=== PATIENT | female | born 1945 | race Caucasian/White ===

== ENCOUNTER 2018-10-31 11:07 | Emergency (ER) | payer MEDICARE, OTHER ==
[~2018-10-31] VITALS: Ht 162.6 cm; Wt 74.8 kg
--- NOTE | 2018-10-31 11:25 | ED Fall/Injury ---
General Chief Complaint: Upper Extremity Stated Complaint: FALL - RT ARM PAIN Source: patient, family Exam Limitations: no limitations History of Present Illness Date Seen by Provider: Oct 31, 2018 Time Seen by Provider: 11:13 Initial Comments Patient presents to ER by private conveyance with her significant other and chief complaint that just prior to arrival she had a fall while out sweeping in her yard. She says the ground a slick with water and she slipped landing on her right side and right elbow. She's having pain and swelling of her right wrist. She has not taken anything for the pain but she does routinely take Aleve when she needs something for pain. She denies being on a blood thinner or antiplatelet. She does have a pacemaker. She denies striking her head or loss of consciousness, headache nausea or pain in her neck. She says she is very distracted by the pain in her wrist but feels a little bit of pain in her right hip where she landed as well. Allergies and Home Medications Allergies Coded Allergies: No Known Drug Allergies (Unverified , 10/31/18) Home Medications Hydrocodone Bit/Acetaminophen 1 Tab Tab, 1 EACH PO Q4-6HR PRN for PAIN-MODERATE Prescribed by: PACO FRANCISCO on 10/31/18 1239 Patient Home Medication List Home Medication List Reviewed: Yes Review of Systems Review of Systems Constitutional: No chills, No diaphoresis Eyes: Denies Blindness, Denies Blurred Vision Ears, Nose, Mouth, Throat: denies ear pain, denies ear discharge Respiratory: No cough, No short of breath Cardiovascular: No chest pain, No edema Gastrointestinal: No abdominal pain, No constipation, No diarrhea Genitourinary: No discharge, No dysuria Past Lspkdgs-Azjqbc-Gemzvn Hx Patient Social History Alcohol Use: Denies Use Recreational Drug Use: No Smoking Status: Never a Smoker Physical Exam Vital Signs Vital Signs - First Documented 10/31/18 11:12 Temp 97.4 Pulse 63 Resp 16 B/P (MAP) 155/73 (100) Pulse Ox 100 O2 Delivery Room Air Capillary Refill : Height, Weight, BMI Height: '" Weight: lbs. oz. kg; BMI Method: General Appearance: WD/WN, mild distress HEENT: PERRL/EOMI, normal ENT inspection, TMs normal, pharynx normal Neck: non-tender, full range of motion, supple, normal inspection Cardiovascular: normal peripheral pulses, regular rate, rhythm, no edema Respiratory: chest non-tender, lungs clear, normal breath sounds, no respiratory distress, no accessory muscle use Gastrointestinal: normal bowel sounds, non tender, soft Pelvic: normal external exam, other (mild tenderness over the right greater trochanter on palpation but no deformity palpated.) Back: normal inspection, no vertebral tenderness Extremities: normal range of motion (right shoulder and elbow), normal inspection (and right shoulder and elbow), swelling (right wrist), other (pain over the right wrist as well as the elbow to direct palpation. Good range of motion but pain over the lateral portion of the glenohumeral joint on direct palpation.) Neurologic/Psychiatric: no motor/sensory deficits, alert, normal mood/affect, oriented x 3 Skin: normal color, warm/dry, ecchymosis (right wrist) Progress/Results/Core Measures Results/Orders My Orders Orders - PACO FRANCISCO Ct Head/Cervical Spine Wo (10/31/18 11:18) Elbow 3 View Right (10/31/18 11:18) Hip 2-3 View Right (10/31/18 11:18) Shoulder 3 View Right (10/31/18 11:18) Wrist 3 View Right (10/31/18 11:18) Ketorolac Injection (Toradol Injection) (10/31/18 11:30) Medications Given in ED Current Medications Medications Dose Ordered Sig/Ralph Route Start Time Stop Time Status Last Admin Dose Admin Ketorolac Tromethamine 60 mg ONCE ONCE IM 10/31/18 11:30 10/31/18 11:31 DC 10/31/18 11:27 60 MG Vital Signs/I&O 10/31/18 11:12 Temp 97.4 Pulse 63 Resp 16 B/P (MAP) 155/73 (100) Pulse Ox 100 O2 Delivery Room Air Progress Progress Note #1: Time: 11:23 Progress Note Discussed the option of observation versus CT scan of the head and neck taking about subdural or occult fracture and the patient and family elected to do imaging. We'll do x-ray right shoulder, elbow and wrist. Toradol for pain. Progress Note #2: Time: 12:35 Progress Note Sling, sugar tong immobilization of the wrist and elbow and conservative management. Diagnostic Imaging Diagonstic Imaging: CT (noncontrast) Plain Films/CT/US/NM/MRI: c-spine, head Comments No acute osseous abnormalities of the calvarium or C-spine. No acute intracranial hemorrhage, mass effect, midline shift or tumor. NAME: FRANCISCO POLANCO MED REC#: [id number] PT STATUS: REG ER : 1945 PHYSICIAN: PACO FRANCISCO MD ADMIT DATE: 10/31/18/ER FS Draft Date of Exam:10/31/18 CT HEAD/CERVICAL SPINE WO PROCEDURE: CT head and CT cervical spine without contrast. TECHNIQUE: Multiple contiguous axial images were obtained through the brain and cervical spine without the use of intravenous contrast. Sagittal and coronal reformations through the cervical spine were then performed. Auto Exposure Controls were utilized during the CT exam to meet ALARA standards for radiation dose reduction. INDICATION: Fell on concrete, landed on right side of body. EXAMINATION: CT brain and cervical spine 10/31/2018 FINDINGS: Brain: There is no hemorrhage or infarct. No mass, mass effect or midline shift. No hydrocephalus. The calvarium demonstrates no acute fractures, no acute process is seen within the visualized sinuses or mastoid air cells. IMPRESSION: 1. No acute intracranial process. CT cervical spine: Normal height and alignment of the vertebral bodies is seen. There are no acute fractures appreciated. No subluxations. Prevertebral soft tissues unremarkable. Chronic findings seen in the visualized lung apices. IMPRESSION: 1. No acute process within the cervical spine. Degenerative findings present. Dictated on workstation # [id number] Dict: 10/31/18 1223 Trans: 10/31/18 1242 [facility] [id number] Interpreted by: ALEX GOMEZ MD Electronically signed by: Reviewed: Reviewed by Md Diagonstic Imaging: Xray Plain Films/CT/US/NM/MRI: elbow (right), other (right shoulder) Comments No acute osseous abnormalities. [facility] [place] [place] NAME: FRANCISCO POLANCO MED REC#: [id number] PT STATUS: REG ER : 1945 PHYSICIAN: PACO FRANCISCO MD ADMIT DATE: 10/31/18/ER FS Draft Date of Exam:10/31/18 ELBOW 3 VIEW RIGHT INDICATION: Injury, fell on wet concrete. Pain. EXAMINATION: Right elbow 10/31/2018. FINDINGS: There is no evidence for an acute fracture or dislocation. The joint spaces are well maintained. There is no significant soft tissue swelling. IMPRESSION: No acute process. Dictated on workstation # [id number] Dict: 10/31/18 1231 Trans: 10/31/18 1237 CV Interpreted by: ALEX GOMEZ MD Electronically signed by: NAME: FRANCISCO POLANCO MED REC#: [id number] PT STATUS: REG ER : 1945 PHYSICIAN: PACO FRANCISCO MD ADMIT DATE: 10/31/18/ER FS Draft Date of Exam:10/31/18 SHOULDER 3 VIEW RIGHT Indication: Fall, pain. Findings: There are arthritic changes to the acromioclavicular joint and mild degenerative change to the glenohumeral joint. No fracture or dislocation. The clavicle intact. No joint separation. The visualized adjacent ribs and pleura intact. Impression: No acute-appearing abnormality. Dictated on workstation # [id number] Dict: 10/31/18 1222 Trans: 10/31/18 122 CV Interpreted by: PEYTON FOSS Electronically signed by: Reviewed: Reviewed by Md Diagonstic Imaging: Xray Plain Films/CT/US/NM/MRI: hand (and right wrist) Comments Distal radial head fracture not involving the articular surface. Closed. Nondisplaced or angulated. [facility] [place] [place] NAME: FRANCISCO POLANCO MED REC#: [id number] PT STATUS: REG ER : 1945 PHYSICIAN: PACO FRANCISCO MD ADMIT DATE: 10/31/18/ER FS Draft Date of Exam:10/31/18 WRIST 3 VIEW RIGHT Indication: Fall on concrete. Pain. Examination: Right wrist 10/31/2018 Findings: 4 views of the wrist There is a transverse fracture through the distal radius with dorsal angulation of the fracture site. The remaining visualized osseous structures demonstrate diffuse degenerative findings about the wrist, especially at the base of the first metacarpal. Impression: 1. Somewhat comminuted and dorsally angulated fracture of the distal radius. Remaining findings appear chronic. Dictated on workstation # [id number] Dict: 10/31/18 1231 Trans: 10/31/18 1239 CV [id number] Interpreted by: ALEX GOMEZ MD Electronically signed by: Reviewed: Reviewed by Me Diagonstic Imaging: Xray Plain Films/CT/US/NM/MRI: hip (r) Comments [facility] [place], [place] NAME: FRANCISCO POLANCO MED REC#: [id number] PT STATUS: REG ER : 1945 PHYSICIAN: PACO FRANCISCO MD ADMIT DATE: 10/31/18/ER FS Draft Date of Exam:10/31/18 HIP 2-3 VIEW RIGHT Indication: Fall, pain. Findings: No fracture, dislocation or acute articular incongruity. No avulsion. Impression: No acute-appearing abnormality. Dictated on workstation # [id number] Dict: 10/31/18 1223 Trans: 10/31/18 1228 CV [id number] Interpreted by: PEYTON FOSS Electronically signed by: Reviewed: Reviewed by Me Departure Impression Primary Impression: Fracture of radial head, right, closed Qualified Codes: S52.124A - Nondisplaced fracture of head of right radius, initial encounter for closed fracture Additional Impression: Fall from standing Qualified Codes: W19.XXXA - Unspecified fall, initial encounter Disposition: 01 HOME, SELF-CARE Condition: Stable Departure-Patient Inst. Decision time for Depature: 12:35 Referrals: LESLIE COTTO MD SELFMYNOR MD (PCP/Family) Primary Care Physician Patient Instructions: How to Use a Shoulder Sling, Wrist Fracture (DC) Add. Discharge Instructions: For the first 3 days apply ice every 4 hours while awake to the wrist to reduce swelling and pain. Tylenol 1000 mg in addition to ibuprofen 800 mg every 8 hours each can be useful as needed for pain. If you have numbness, tingling or increased swelling and pain in your wrist then you should apply ice, loosen the Karthik bandage wrap and elevate the wrist above the level of your heart. If you have a tremendous amount of pain not treated by these suggestions then you can use the hydrocodone one tablet every 6 hours as needed however will cause constipation and drowsiness and should be accompanied with a laxative such as MiraLAX daily. Review the handout for further tips. Wear the sling at all times except to bathe. Keep the splint on and out of water until removed by your physician. Call Dr. Cotto, orthopedic surgery or the orthopedic surgeon of your choice for a follow-up appointment usually within one week. If you have questions or need help managing symptoms you may also follow-up with your primary care doctor. All discharge instructions reviewed with patient and/or family. Voiced understanding. Scripts Hydrocodone Bit/Acetaminophen (Hydrocodone/Acetaminophen 5/325mg Tablet) 1 Tab Tab 1 EACH PO Q4-6HR PRN for PAIN-MODERATE MDD 10 for 3 Days, #10 TAB Prov: PACO FRANCISCO 10/31/18 Copy Copies To 1: LESLIE COTTO MD; MERLINE CONWAY MD, TITUS J Oct 31, 2018 11:25
[2018-10-31] MEDS ORDERED: KETOROLAC 60 MG/2 ML VIAL IM ONE (11:30)
[2018-10-31] MEDS ORDERED: CHLO25TA22 (12:17)
[2018-10-31] MEDS ORDERED: PARO20TA5 (12:17)
[2018-10-31] MEDS ORDERED: PRAV20TA3 (12:17)
--- NOTE | 2018-10-31 12:17 | NUR ---
Returned from xray/CT
--- NOTE | 2018-10-31 12:28 | Diagnostic Imaging Report ---
Indication: Fall, pain. Findings: There are arthritic changes to the acromioclavicular joint and mild degenerative change to the glenohumeral joint. No fracture or dislocation. The clavicle intact. No joint separation. The visualized adjacent ribs and pleura intact. Impression: No acute-appearing abnormality. Dictated by: Dictated on workstation # [id number]
--- NOTE | 2018-10-31 12:29 | Diagnostic Imaging Report ---
Indication: Fall, pain. Findings: No fracture, dislocation or acute articular incongruity. No avulsion. Impression: No acute-appearing abnormality. Dictated by: Dictated on workstation # [id number]
--- NOTE | 2018-10-31 12:30 | NUR ---
Long arm Sugar Tong splint placed to right arm. DNV's intact. Dr Bray viewed post placement.
--- NOTE | 2018-10-31 12:38 | Diagnostic Imaging Report ---
INDICATION: Injury, fell on wet concrete. Pain. EXAMINATION: Right elbow 10/31/2018. FINDINGS: There is no evidence for an acute fracture or dislocation. The joint spaces are well maintained. There is no significant soft tissue swelling. IMPRESSION: No acute process. Dictated by: Dictated on workstation # [id number]
[2018-10-31] MEDS ORDERED: ACHD5005 PO (12:39)
--- NOTE | 2018-10-31 12:39 | Diagnostic Imaging Report ---
Indication: Fall on concrete. Pain. Examination: Right wrist 10/31/2018 Findings: 4 views of the wrist There is a transverse fracture through the distal radius with dorsal angulation of the fracture site. The remaining visualized osseous structures demonstrate diffuse degenerative findings about the wrist, especially at the base of the first metacarpal. Impression: 1. Somewhat comminuted and dorsally angulated fracture of the distal radius. Remaining findings appear chronic. Dictated by: Dictated on workstation # [id number]
--- NOTE | 2018-10-31 12:43 | Diagnostic Imaging Report ---
PROCEDURE: CT head and CT cervical spine without contrast. TECHNIQUE: Multiple contiguous axial images were obtained through the brain and cervical spine without the use of intravenous contrast. Sagittal and coronal reformations through the cervical spine were then performed. Auto Exposure Controls were utilized during the CT exam to meet ALARA standards for radiation dose reduction. INDICATION: Fell on concrete, landed on right side of body. EXAMINATION: CT brain and cervical spine 10/31/2018 FINDINGS: Brain: There is no hemorrhage or infarct. No mass, mass effect or midline shift. No hydrocephalus. The calvarium demonstrates no acute fractures, no acute process is seen within the visualized sinuses or mastoid air cells. IMPRESSION: 1. No acute intracranial process. CT cervical spine: Normal height and alignment of the vertebral bodies is seen. There are no acute fractures appreciated. No subluxations. Prevertebral soft tissues unremarkable. Chronic findings seen in the visualized lung apices. IMPRESSION: 1. No acute process within the cervical spine. Degenerative findings present. Dictated by: Dictated on workstation # [id number]
[2018-10-31 12:53] VITALS: BP 149/84
--- NOTE | 2018-10-31 12:53 | NUR ---
Pt discharged to home after extensive discharge review with numerous questions answered. Pt and spouse verbalize understanding of home instructions and will call to [facility] tomorrow for Dr Cotto (wagon driller) to arrange a follow up appt. Discussed signs and sx of vascular compromise r/t swelling: numb, tingling, unable to noe color of fingernails, and obvious discoloration of skin deepened color bluish/purple or white (can not noe a cap refill). Return to ED as needed with concerns.
== END 2018-10-31 12:53 | disposition home or self-care (01) ==
LOC: ER FS 11:09
DX: S52.124A Nondisplaced fracture of head of right radius, initial encounter for closed fracture (principal); Z95.0 Presence of cardiac pacemaker; W01.0XXA Fall on same level from slipping, tripping and stumbling without subsequent striking against object, initial encounter; Y92.096 Garden or yard of other non-institutional residence as the place of occurrence of the external cause
CPT/HCPCS: 29105; 70450; 72125; 73030; 73080; 73110; 73502

== ENCOUNTER 2023-01-21 10:32 | Emergency (ER) | payer MEDICARE, OTHER ==
[~2023-01-21] VITALS: Ht 157 cm; Wt 77.0 kg
[~2023-01-21 10:32] MED LIST: ACHD5005 PO; CHLO25TA22; PARO20TA5; PRAV20TA3
[2023-01-21 10:51] LABS: BASOPHILS % (AUTO) 1 % (0-10); EOSINOPHILS # (AUTO) 0.2 10^3/uL (0.0-0.3); EOSINOPHILS % (AUTO) 3 % (0-10); HEMATOCRIT 43 % (35-52); HEMOGLOBIN 14.4 g/dL (11.5-16.0); LYMPHOCYTES # (AUTO) 2.1 10^3/uL (1.0-4.0); LYMPHOCYTES % (AUTO) 32 % (12-44); MEAN CORPUSCULAR HEMOGLOBIN 30 pg (25-34); MEAN CORPUSCULAR HGB CONC 33 g/dL (32-36); MEAN CORPUSCULAR VOLUME 90 fL (80-99); MEAN PLATELET VOLUME 9.9 fL (9.0-12.2); MONOCYTES # (AUTO) 0.5 10^3/uL (0.0-1.0); MONOCYTES % (AUTO) 7 % (0-12); NEUTROPHILS # (AUTO) 3.8 10^3/uL (1.8-7.8); NEUTROPHILS % (AUTO) 58 % (42-75); PLATELET COUNT 230 10^3/uL (130-400); WHITE BLOOD COUNT 6.5 10^3/uL (4.3-11.0)
--- NOTE | 2023-01-21 10:53 | ED Neurological Problem ---
General Chief Complaint: Dizziness/Syncope Stated Complaint: STROKE-LIKE SYMPTOMS Nursing Triage Note: Patient has presented to ER with cc of starting to feel dizzy at about 0900 this morning while she was feeding the birds. She reports that she feels like she is having trouble processing her words. Source: patient History of Present Illness Date Seen by Provider: Jan 21, 2023 Time Seen by Provider: 10:33 Initial Comments 77-year-old female presenting with complaints of feeling dizzy and having trouble finding her words. She states this started around 9 AM this morning. She has been having some trouble with her right knee and was planning to try and see a doctor about it today. She denies having any headache or chest pain. She does feel very dizzy even lying in the bed. She denies having any shortness of breath or abdominal pain. She has not been coughing. She denies pain with urination. She has a pacemaker and follows with cardiology out of [place] Dr. Lyn. Her primary care provider is Dr. WIGGINS. She states that she was fine when she woke up this morning but around 9 AM she was feeding some birds and felt like her symptoms started then. Timing/Duration: 1-3 hours Severity: mild Associated Symptoms: confusion; No fever/chills, No insomnia, No loss of c onsciousness, No muscle spasms; nausea/vomiting (nausea but no emesis), numbness in legs/feet (decreased sensation to light touch right arm and right leg); No ringing in ears, No seizures, No sleepy; slurred speech, trouble walking (due to pain in right knee), vision changes (feels that her vision is blurry) Allergies and Home Medications Allergies Coded Allergies: No Known Drug Allergies (Unverified , 10/31/18) Patient Home Medication List Home Medication List Reviewed: Yes Chlorthalidone (Chlorthalidone) 25 Mg Tablet, (Reported) Entered as Reported by: MODESTO MCKENZIE on 10/31/18 1217 Hydrocodone Bit/Acetaminophen (Lortab 5 Mg Tablet) 1 Tab Tab, 1 EACH PO Q4-6HR PRN for PAIN-MODERATE Prescribed by: PACO FRANCISCO on 10/31/18 1239 Paroxetine HCl (Paroxetine HCl) 20 Mg Tablet, (Reported) Entered as Reported by: MODESTO MCKENZIE on 10/31/18 1217 Pravastatin Sodium (Pravastatin Sodium) 20 Mg Tablet, (Reported) Entered as Reported by: MODESTO MCKENZIE on 10/31/18 1217 Review of Systems Review of Systems Constitutional: No chills; dizziness; No fever Eyes: Blurred Vision; Denies Photophobia Ears, Nose, Mouth, Throat: denies ear pain, denies ear discharge, denies nose pain, denies nose discharge, denies epistaxis Respiratory: No cough, No short of breath Cardiovascular: No chest pain, No palpitations Gastrointestinal: No abdominal pain; nausea; No vomiting Genitourinary: No dysuria Musculoskeletal: see HPI Skin: No rash Psychiatric/Neurological: Denies Headache; Numbness (decreased sensation right arm/leg); Denies Unable to Move Lower Ext, Denies Unable to Move Upper Ext Past Qjakees-Gohdkk-Mqhsdc Hx Patient Social History Tobacco Use?: No Tobacco type used: Cigarettes Use of E-Cig and/or Vaping dev: No Substance use?: No Seasonal Allergies Seasonal Allergies: No Past Medical History Surgery/Hospitalization HX: Hyperlipidemia, Bilateral TKA, Pacemaker Surgeries: Yes (Bilat Total Knee Replacements, Tummy Tuck) Joint Replacement, Pacemaker Respiratory: No Cardiac: Yes Irregular Heartbeat Neurological: No Genitourinary: No Gastrointestinal: No Musculoskeletal: No Endocrine: No HEENT: No Cancer: No Psychosocial: No Integumentary: No Blood Disorders: No Physical Exam Vital Signs Vital Signs - First Documented 01/21/23 10:39 Temp 36.6 Pulse 73 Resp 16 B/P (MAP) 154/86 (108) Pulse Ox 96 O2 Delivery Room Air Capillary Refill : Height, Weight, BMI Height: 5'4.00" Weight: 165lbs. oz. 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, alert, oriented x 3 Crainal Nerves: PERRL, abnormal speech (mild aphasia and mild dysarthria) Coordination/Gait: normal gait Motor/Sensory: no motor deficit, sensory deficit (decreased sensation right arm/leg compared to the left) Skin: normal color, warm/dry Stroke Onset of Symptoms Date of Onset of Symptoms: Jan 21, 2023 Time of Symptom Onset: 09:00 Onset of Symptoms: Yes NIH Stroke Scale Assessment Select: Initial Level of Consciousness: 0=Alert (0), Level of Consciousness- Questions: 1=Answers one question (1), LOC Commands: 0=Performs both tasks (0), Gaze: Normal (0), Visual Fraire: 0=No visual loss (0), Facial Movement (Facial Paresis): 0=Normal symmetrical mnt (0), Motor Function-Arms Right: 0=No drift (0), Motor Function-Arms Left: 0=No drift (0), Motor Function-Legs Right: 0=No drift (0), Motor Function-Legs Left: 0=No drift (0), Limb Ataxia: 0=Absent (0), Sensory: 1=Mild to Moderate loss (1), Best Language: 1=Mild to moderat aphasia (1), Dysarthria: 1=Mild to moderate loss (1), Extinction & Inattention: 0=No abnormality (0), Total: 4 Stroke Thrombolytic Exclusion Age 18 or Over: Yes Acute intenal hemorrhage: No History of CVA: No Uncontrolled Coagulation Defec: No Intracranial Hemorrhage: No Severe Hypertension: No GI or Bleed: No Subarachnoid Hemorrhage: No Intracranial Neoplasm/Aneurysm: No Oral Anticoagulants: No Surgery or Trauma: No Puncture of Non-Compressible V: No Recent CPR: No Diabetic Hemorrhagic Retinopat: No Organ Biopsy: No Recent Obstetric Delivery: No Glucose: No Significant Hepatic Dysfunctio: No NIH Stoke Scale >22: No Bacterial Endocarditis: No Pericarditis: No Improving Symptoms: No Platelets: No Progress/Results/Core Measures Results/Orders Lab Results Laboratory Tests Test 01/21/23 10:30 01/21/23 10:40 01/21/23 10:45 01/21/23 12:42 Range/Units White Blood Count 6.5 4.3-11.0 10^3/uL Red Blood Count 4.79 3.80-5.11 10^6/uL Hemoglobin 14.4 11.5-16.0 g/dL Hematocrit 43 35-52 % Mean Corpuscular Volume 90 80-99 fL Mean Corpuscular Hemoglobin 30 25-34 pg Mean Corpuscular Hemoglobin Concent 33 32-36 g/dL Red Cell Distribution Width 13.2 10.0-14.5 % Platelet Count 230 130-400 10^3/uL Mean Platelet Volume 9.9 9.0-12.2 fL Immature Granulocyte % (Auto) 0 % Neutrophils (%) (Auto) 58 42-75 % Lymphocytes (%) (Auto) 32 12-44 % Monocytes (%) (Auto) 7 0-12 % Eosinophils (%) (Auto) 3 0-10 % Basophils (%) (Auto) 1 0-10 % Neutrophils # (Auto) 3.8 1.8-7.8 10^3/uL Lymphocytes # (Auto) 2.1 1.0-4.0 10^3/uL Monocytes # (Auto) 0.5 0.0-1.0 10^3/uL Eosinophils # (Auto) 0.2 0.0-0.3 10^3/uL Basophils # (Auto) 0.0 0.0-0.1 10^3/uL Immature Granulocyte # (Auto) 0.0 0.0-0.1 10^3/uL Prothrombin Time 13.1 12.2-14.7 SEC INR Comment 1.0 0.8-1.4 Activated Partial Thromboplast Time 28 24-35 SEC Sodium Level 143 135-145 MMOL/L Potassium Level 3.9 3.6-5.0 MMOL/L Chloride Level 107 98-107 MMOL/L Carbon Dioxide Level 25 21-32 MMOL/L Anion Gap 11 5-14 MMOL/L Blood Urea Nitrogen 15 7-18 MG/DL Creatinine 0.84 0.60-1.30 MG/DL Estimat Glomerular Filtration Rate 72 BUN/Creatinine Ratio 18 Glucose Level 78 70-105 MG/DL Calcium Level 9.6 8.5-10.1 MG/DL Corrected Calcium 9.4 8.5-10.1 MG/DL Total Bilirubin 0.8 0.1-1.0 MG/DL Aspartate Amino Transf (AST/SGOT) 19 5-34 U/L Alanine Aminotransferase (ALT/SGPT) 16 0-55 U/L Alkaline Phosphatase 84 40-136 U/L Troponin I < 0.30 <0.30 NG/ML Total Protein 7.0 6.4-8.2 GM/DL Albumin 4.2 3.2-4.5 GM/DL Glucometer 74 70-110 MG/DL SARS-CoV-2 RNA (RT-PCR) Negative Not Detecte Urine Color YELLOW Urine Clarity CLEAR Urine pH 6.0 5-9 Urine Specific [place] 1.010 L 1.016-1.022 Urine Protein NEGATIVE NEGATIVE Urine Glucose (UA) NEGATIVE NEGATIVE Urine Ketones NEGATIVE NEGATIVE Urine Nitrite NEGATIVE NEGATIVE Urine Bilirubin NEGATIVE NEGATIVE Urine Urobilinogen 0.2 < = 1.0 MG/DL Urine Leukocyte Esterase TRACE H NEGATIVE Urine RBC (Auto) NEGATIVE NEGATIVE Urine RBC NONE /HPF Urine WBC RARE /HPF Urine Squamous Epithelial Cells RARE /HPF Urine Crystals NONE /LPF Urine Bacteria NEGATIVE /HPF Urine Casts NONE /LPF Urine Mucus NEGATIVE /LPF Urine Culture Indicated NO My Orders Orders - POOJA MACDONALD MD Cbc And Automated Diff (01/21/23 10:45) Protime With Inr (01/21/23 10:45) Partial Thromboplastin Time (01/21/23 10:45) Comprehensive Metabolic Panel (01/21/23 10:45) Troponin I Fs (01/21/23 10:45) Ua Culture If Indicated (01/21/23 10:45) Chest 1 View Ap/Pa Only (01/21/23 10:45) Ekg Tracing (01/21/23 10:45) Accucheck Stat ONCE (01/21/23 10:45) Ed Iv/Invasive Line Start (01/21/23 10:45) Vital Signs Stroke Patient Q15M (01/21/23 10:45) Ct Head Wo-R/O Stroke (01/21/23 10:45) O2 (01/21/23 10:45) Intake & Output 06,14,22 (01/21/23 10:45) Monitor-Rhythm Ecg Trace Only (01/21/23 10:45) Dysphagia Screening Tool Q10MX1 (01/21/23 10:45) Covid 19 Inhouse Test (01/21/23 10:47) Ct Angio Head/Neck (01/21/23 11:17) Ns Iv 1000 Ml (Ns Iv 1000 Ml) (01/21/23 11:17) Iohexol Injection (Omnipaque 350 Mg/Ml 1 (01/21/23 12:00) Received Contrast (Hold Metformin- Contr (01/21/23 12:00) Ns (Ivpb) 100 Ml (Sodium Chloride 0.9% 1 (01/21/23 12:00) Medications Given in ED Current Medications Medications Dose Ordered Sig/Ralph Route Start Time Stop Time Status Last Admin Dose Admin Iohexol 75 ml ONCE ONCE IV 01/21/23 12:00 01/21/23 12:01 DC 01/21/23 12:30 75 ML Sodium Chloride 100 ml ONCE ONCE IV 01/21/23 12:00 01/21/23 12:01 DC 01/21/23 12:30 80 ML Vital Signs/I&O 01/21/23 01/21/23 10:39 13:25 Temp 36.6 36.7 Pulse 73 73 Resp 16 20 B/P (MAP) 154/86 (108) 171/91 Pulse Ox 96 73 O2 Delivery Room Air Room Air Blood Pressure Mean: 108 Progress Progress Note #1: Progress Note Differential diagnosis includes hypertensive urgency, stroke, TIA, sinusitis, electrolyte imbalance, UTI, dehydration. Obtain NIH stroke scale on patient's arrival and it was a 4. Ordered IV access and send labs for complete blood count, comprehensive metabolic profile, coagulation factors, troponin, COVID swab, urinalysis. CT scan of the head without contrast to look for evidence of bleeding or stroke. If this is negative we will order a CT angio of the head and neck to look for possible large vessel occlusion. Patient reported having symptoms starting at 9 but then she also said that she was having some trouble with her leg and arm last night. Progress Note #2: Time: 11:[address] head without contrast did not show any acute intracranial hemorrhage or mass or signs of a stroke. Ordered CT angiography of the head neck. Her complete blood count did not show an elevation of the white blood cells and her hemoglobin was normal at 14.4. Platelets normal at 230. Her comprehensive metabolic profile did not show any acute electrolyte abnormalities to account for her symptoms. Her glucose was 78. Creatinine was 0.84. She had a negative troponin less than 0.3. Her electrocardiogram just showed ventricular paced rhythm. Her coagulation factors were not elevated. Her pro time was 13.1 with an INR of 1 and a PTT of 28. Her COVID swab was also negative. Once the CT angiography of the head and neck is back I will talk with neurology on-call stroke physician. Progress Note #3: Time: 12:56 Progress Note Patient continues to be stable and have his blood pressure running from 1 50-[address] angiography is done but the report is not back to us yet. Call placed to to speak with the on-call stroke neurologist. I was able to speak with Dr. Ziegler, the on-call stroke neurologist at . She had advised that the patient may need an MRI or at least evaluation by a neurologist. Her symptoms onset could be around 9 AM but then she also mentioned that she was having some leg and arm weakness and not working right last night. Unclear if that was onset of some stroke symptoms or if it was definitely at 9 AM. With going with 9 AM time the patient would be on the borderline for timing of administering alteplase or TNKase. Since she also said that she had some trouble with her leg and arm last night will defer administering a clot busting medicine since unsure if her issue with leg and arm were symptoms or a stroke or if it was all this am at 9 am. With that u ncertainty I felt she was more at risk of complication and bleeding with the medicine. did not have a bed available for the patient and recommended getting her transferred to a facility that had neurology and MRI capabilities. 1305 I placed a call to [facility] access center as the patient and had voiced that she followed with a storage garage manager [facility] and [facility] the [facility]. I was connected with Dr. Olson, ED physician at [facility]. I reviewed the patient presentation and history with him as well as not finding anything acute on the CT scan of the head or the CT angiography of the head and neck. At 1315 he accepted the patient to the emergency department for transfer to be seen by neurology and have further evaluation for possible stroke work-up. When reviewing the plan and findings with the patient and spouse they advised that she had been told with her pacemaker she could not have an MRI. We will still get her transferred for neurology evaluation and they could check with cardiology to see if her pacemaker was capable of having an MRI performed. If not then at least would see neurology that she could be further evaluated from a stroke standpoint. Initial ECG Impression Date: Jan 21, 2023 Initial ECG Impression Time: 10:42 Initial ECG Rate: 65 Initial ECG Comparisson: No Previous ECG Available Comment My personal interpretation and review the electrocardiogram shows electronic ventricular pacemaker at a rate of 65 bpm. HI interval [address] elevation. QT interval 448 ms with a QTc interval 460 ms. There is no prior tracing available for comparison. Diagnostic Imaging Diagonstic Imaging: CT Plain Films/CT/US/NM/MRI: head Comments NAME: FRANCISCO POLANCO [facility] REC#: [id number] PT STATUS: REG ER : 1945 PHYSICIAN: POOJA MACDONALD MD ADMIT DATE: 01/21/23/ER FS Signed Date of Exam:01/21/23 CT HEAD WO-R/O STROKE PROCEDURE: CT head wo r/o stroke. TECHNIQUE: Multiple contiguous axial images were obtained through the brain without the use of intravenous contrast. Auto Exposure Controls were utilized during the CT exam to meet ALARA standards for radiation dose reduction. INDICATION: Slurred speech. COMPARISON: None. FINDINGS: Mild generalized cerebral and cerebellar volume loss. Mild nonspecific periventricular hypoattenuation, most commonly seen with chronic small vessel ischemic disease. Calcified atherosclerosis of the bilateral cavernous and paraclinoid internal carotid arteries and intracranial vertebral arteries. No intra- or extra-axial mass or fluid collection. No acute hemorrhage. The ventricles are normal in size, shape, and morphology. The infante-white matter junction is normal. The subarachnoid cisterns are patent. The visualized paranasal sinuses are normal. The visualized portions of the orbits and globes are normal. The mastoid air cells are clear. The applied anthropologist topogram shows no lytic lesion or fracture. Impression: No acute intracranial process. Mild cerebral volume loss. Mild chronic small vessel ischemic disease. Dictated by: Dictated on workstation # [id number] Dict: 01/21/231105 Trans: 01/21/231108 [facility] [id number] Interpreted by: ISMAEL WILEY DO Electronically signed by: ISMAEL WILEY DO 01/21/231108 Reviewed: Reviewed by Me (reviewed at 1112 am) Diagonstic Imaging: Xray Plain Films/CT/US/NM/MRI: chest Comments [facility] NAME: FRANCISCO POLANCO [facility] REC#: [id number] PT STATUS: REG ER : 1945 PHYSICIAN: POOJA MACDONALD MD ADMIT DATE: 01/21/23/ER FS Signed Date of Exam:01/21/23 CHEST 1 VIEW AP/PA ONLY INDICATION: Slurred speech with difficulty with cognition and dizziness. FINDINGS: The heart size is enlarged. There is no focal consolidation. There is some thickening of the central airways which may reflect bronchitis. No eliza pneumonia. No overt failure. IMPRESSION: Mild cardiomegaly and some thickening of the central airways. Correlate for bronchitis. No acute pleural pathology. Dictated by: Dictated on workstation # [id number] Dict: 01/21/23 1112 Trans: 01/21/23 1326 [id number] Interpreted by: PEYTON FOSS Electronically signed by: PEYTON FOSS 01/21/23 1326 Reviewed: Reviewed by In Diagonstic Imaging: CT Plain Films/CT/US/NM/MRI: head (Angiography of head neck) Comments [facility] [place] NAME: FRANCISCO POLANCO [facility] REC#: [id number] PT STATUS: REG ER : 1945 PHYSICIAN: POOJA MACDONALD MD ADMIT DATE: 01/21/23/ER FS Signed Date of Exam:01/21/23 CT ANGIO HEAD/NECK PROCEDURE: CT angiography of the head and CT angiography of the neck with and without contrast. TECHNIQUE: Contiguous noncontrast images were obtained from the skull base through the vertex. After intravenous contrast administration, helical CT angiography of the neck was performed. Source data was reformatted into 3D MIP projections. Delayed post contrast acquisition was also obtained. Auto Exposure Controls were utilized during the CT exam to meet ALARA standards for radiation dose reduction. INDICATION: Dizziness, aphasia and dysarthria. COMPARISON: Noncontrast head from earlier same day. FINDINGS: The aortic arch is normal. No dissection or stenosis within the bilateral common carotid arteries. Proximal internal carotid arteries are normal in both sides, and there is no stenosis per NASCET criteria. The cervical divisions of the internal carotid arteries are normal. Bilateral vertebral arteries are codominant and widely patent throughout the neck. No vertebral artery dissection or high-grade stenosis. Bilateral distal internal carotid arteries are normal. The M1 and M2 divisions of the middle cerebral arteries are widely patent. Anterior cerebral arteries are widely patent and there is no anterior commuting artery aneurysm. Basilar artery is patent without terminal aneurysm. The right posterior cerebral artery has a origin. Left posterior cerebral artery has conventional origin and both posterior cerebral arteries are patent centrally. Dural venous sinuses are patent. No pathologic enhancement on delayed phase imaging. Airway is widely patent. Thyroid is normal. No cervical lymphadenopathy. Lung apices are clear. No concerning abnormality in cervical spine. IMPRESSION: 1. Normal CTA head and neck. Dictated by: Dictated on workstation # [id number] Dict: 01/21/23 1251 Trans: 01/21/23 1258 [facility] [id number] Interpreted by: LÓPEZ RUSSO MD Electronically signed by: LÓPEZ RUSSO MD 01/21/238 Reviewed: Reviewed by Me Critical Care Note Critical Care Total Time (minutes) 60 minutes Progress I spent at least 60 minutes of critical care time with the patient. Time excludes separately billable procedures. Time spent in obtaining history from the patient and spouse, ordering tests and reviewing results, ordering int erventions and reviewing response, discussion with consultants, documentation in the chart. Patient was at risk of neurologic compromise and collapse with having acute stroke symptoms. She required my immediate direct intervention and management to help stabilize her condition and arrange for transfer to higher level of care. Departure Impression Primary Impression: Acute stroke due to ischemia Additional Impressions: Dizziness Dysarthria Aphasia Disposition: XFER T-ON LICENSE OF [facility] Condition: Critical Transfer Transfer Reason: Exceeds level of care (Needs neurology and possible evaluation for MRI with her pacemaker) Time Spoke to Accepting Phy: 13:15 Transfer Progress Notes 1305 I placed a call to [facility] access center as the patient and had voiced that she followed with a storage garage manager [facility]. I was connected with Dr. Olson, ED physician at [facility]. I reviewed the patient presentation and history with him as well as not finding anything acute on the CT scan of the head or the CT angiography of the head and neck. At 1315 he accepted the patient to the emergency department for transfer to be seen by neurology and have further evaluation for possible stroke work-up. Transfer Facility: [facility] Method of Transfer: EMS Departure-Patient Inst. Referrals: MYNOR WIGGINS MD (PCP/Family) Primary Care Physician POOJA MACDONALD MD Jan 21, 2023 10:52
[2023-01-21 11:09] LABS: CALCIUM 9.6 MG/DL (8.5-10.1); CHLORIDE 107 MMOL/L (98-107); POTASSIUM 3.9 MMOL/L (3.6-5.0); SODIUM 143 MMOL/L (135-145)
[2023-01-21 11:10] LABS: BILIRUBIN,TOTAL 0.8 MG/DL (0.1-1.0)
--- NOTE | 2023-01-21 11:10 | Diagnostic Imaging Report ---
PROCEDURE: CT head wo r/o stroke. TECHNIQUE: Multiple contiguous axial images were obtained through the brain without the use of intravenous contrast. Auto Exposure Controls were utilized during the CT exam to meet ALARA standards for radiation dose reduction. INDICATION: Slurred speech. COMPARISON: None. FINDINGS: Mild generalized cerebral and cerebellar volume loss. Mild nonspecific periventricular hypoattenuation, most commonly seen with chronic small vessel ischemic disease. Calcified atherosclerosis of the bilateral cavernous and paraclinoid internal carotid arteries and intracranial vertebral arteries. No intra- or extra-axial mass or fluid collection. No acute hemorrhage. The ventricles are normal in size, shape, and morphology. The infante-white matter junction is normal. The subarachnoid cisterns are patent. The visualized paranasal sinuses are normal. The visualized portions of the orbits and globes are normal. The mastoid air cells are clear. The call center trainer topogram shows no lytic lesion or fracture. Impression: No acute intracranial process. Mild cerebral volume loss. Mild chronic small vessel ischemic disease. Dictated by: Dictated on workstation # [id number]
[2023-01-21 11:11] LABS: PROTHROMBIN TIME PATIENT 13.1 SEC (12.2-14.7)
[2023-01-21 11:15] LABS: ALANINE AMINOTRANSFERASE 16 U/L (0-55); ALBUMIN 4.2 GM/DL (3.2-4.5); ALKALINE PHOSPHATASE 84 U/L (40-136); BUN/CREATININE RATIO 18; CARBON DIOXIDE 25 MMOL/L (21-32); CREATININE SERUM 0.84 MG/DL (0.60-1.30); GFR ESTIMATED 72; GLUCOSE 78 MG/DL (70-105)
--- NOTE | 2023-01-21 11:15 | Diagnostic Imaging Report ---
INDICATION: Slurred speech with difficulty with cognition and dizziness. FINDINGS: The heart size is enlarged. There is no focal consolidation. There is some thickening of the central airways which may reflect bronchitis. No eliza pneumonia. No overt failure. IMPRESSION: Mild cardiomegaly and some thickening of the central airways. Correlate for bronchitis. No acute pleural pathology. Dictated by: Dictated on workstation # [id number]
[2023-01-21] MEDS ORDERED: NS IV 1000 ML 1,000 ML IV STA (11:17)
[2023-01-21] MEDS ORDERED: IOHEXOL 350 MG/ML 100 ML (OMNIPAQUE 350) VIAL IV ONE (12:00)
[2023-01-21] MEDS ORDERED: HOLD METFORMIN - RECEIVED CONTRAST 20 ML VIAL IV SCH (12:00)
[2023-01-21] MEDS ORDERED: NS 100 ML (IVPB) BAG IV ONE (12:00)
[2023-01-21 12:45] LABS: BILIRUBIN,URINE NEGATIVE (NEGATIVE); CLARITY,URINE CLEAR; COLOR,URINE YELLOW; GLUCOSE, URINE (UA) NEGATIVE (NEGATIVE); KETONES,URINE NEGATIVE (NEGATIVE); LEUKOCYTE ESTERASE ,URINE TRACE (NEGATIVE); NITRITE,URINE NEGATIVE (NEGATIVE); PROTEIN,URINE NEGATIVE (NEGATIVE)
[2023-01-21 12:52] LABS: BACTERIA,URINE NEGATIVE /HPF; SQUAMOUS EPITHELIAL CELL,UR RARE /HPF; WBC,URINE RARE /HPF
--- NOTE | 2023-01-21 12:59 | Diagnostic Imaging Report ---
PROCEDURE: CT angiography of the head and CT angiography of the neck with and without contrast. TECHNIQUE: Contiguous noncontrast images were obtained from the skull base through the vertex. After intravenous contrast administration, helical CT angiography of the neck was performed. Source data was reformatted into 3D MIP projections. Delayed post contrast acquisition was also obtained. Auto Exposure Controls were utilized during the CT exam to meet ALARA standards for radiation dose reduction. INDICATION: Dizziness, aphasia and dysarthria. COMPARISON: Noncontrast head from earlier same day. FINDINGS: The aortic arch is normal. No dissection or stenosis within the bilateral common carotid arteries. Proximal internal carotid arteries are normal in both sides, and there is no stenosis per NASCET criteria. The cervical divisions of the internal carotid arteries are normal. Bilateral vertebral arteries are codominant and widely patent throughout the neck. No vertebral artery dissection or high-grade stenosis. Bilateral distal internal carotid arteries are normal. The M1 and M2 divisions of the middle cerebral arteries are widely patent. Anterior cerebral arteries are widely patent and there is no anterior commuting artery aneurysm. Basilar artery is patent without terminal aneurysm. The right posterior cerebral artery has a origin. Left posterior cerebral artery has conventional origin and both posterior cerebral arteries are patent centrally. Dural venous sinuses are patent. No pathologic enhancement on delayed phase imaging. Airway is widely patent. Thyroid is normal. No cervical lymphadenopathy. Lung apices are clear. No concerning abnormality in cervical spine. IMPRESSION: 1. Normal CTA head and neck. Dictated by: Dictated on workstation # [id number]
[2023-01-21 13:25] VITALS: BP 171/91
== END 2023-01-21 14:00 | disposition short-term general hospital (02) ==
LOC: EDUNIT# 10:32 → ER FS 10:33
DX: I63.9 Cerebral infarction, unspecified (principal); R42 Dizziness and giddiness; R47.1 Dysarthria and anarthria; R47.01 Aphasia; F17.210 Nicotine dependence, cigarettes, uncomplicated; Z95.0 Presence of cardiac pacemaker
CPT/HCPCS: 36415; 70450; 70496; 70498; 71045; 80053; 81000; 82947; 84484; 85025; 85610; 85730; 87636; 93005; 93041; 96360; Q9967